=== PATIENT | female | born 1990 | race Caucasian/White ===

== ENCOUNTER 2017-10-06 17:05 | Emergency (ER) | payer OTHER, SELFPAY ==
[~2017-10-06 17:05] MED LIST: ISOVUE-370 76%-LOCM 1 ML ONE
[2017-10-06] MEDS ORDERED: Fentanyl 100 MCG/2 ML VIAL ONE (18:06)
[2017-10-06] MEDS ORDERED: Ondansetron HCl/PF 4 MG/2 ML Vial ONE (18:06)
[2017-10-06] MEDS ORDERED: Morphine 4 MG/ML VIAL ONE (18:47)
[2017-10-06] MEDS ORDERED: Ketorolac Tromethamine 30 MG/ML VIAL ONE (18:47)
--- NOTE | 2017-10-06 20:12 | CT ---
CT OF CHEST WITH CONTRAST CT OF ABDOMEN AND PELVIS WITH CONTRAST CT THORACIC SPINE WITH CONTRAST CT LUMBAR SPINE WITH CONTRAST 10/06/17 INDICATION: Level II trauma, posttraumatic pain. FINDINGS: There is no evidence of consolidation, effusion, or pneumothorax. The imaged thoracoabdominal aorta r eveals no evidence of posttraumatic aneurysmal dilatation or periaortic hematoma. The bowel is not re liably assessed without enteric contrast media. No definite acute posttraumatic sequela of the imaged solid abdominal viscera. There is heterogeneity and prominence of the uterus which is likely due to physiologic changes given patient's age, and the indwelling tampon. Moderate distention of the urinar y bladder. Minimal free pelvic fluid is likely physiologic although clinical correlation as necessary . There is no acute compression fracture or subluxation of the imaged thoracolumbar spine. There is a slight levocurvature of the thoracolumbar spine which could be positional. Correlate clinically. IMPRESSION: No definite acute posttraumatic sequela, with additional details discussed above. Level II trauma results called to patient's ER physician, Jarad Ibrahim, at time of interpretation , 1746 hours, 10/06/17.
== END 2017-10-06 19:03 | disposition home or self-care (01) ==
LOC: ERS 17:05
DX: S29.9XXA Unspecified injury of thorax, initial encounter (principal); S39.91XA Unspecified injury of abdomen, initial encounter; V80.010A Animal-rider injured by fall from or being thrown from horse in noncollision accident, initial encounter
CPT/HCPCS: 71260; 74177; 96374; 96375; J1885; J2270; J2405; J3010

== ENCOUNTER 2017-10-08 20:43 | Emergency (ER) | payer OTHER, SELFPAY ==
[2017-10-08 21:45] LABS: Bilirubin Negative (Negative); Blood, Urine Moderate (Negative); Glucose, Urine (Dipstick) Negative (Negative); Ketone, Urine Negative (Negative); Nitrite Negative (Negative); Protein, Urine (Dipstick) Negative (Neg-Trace); Urobilinogen 0.2 mg/dL (0.2-1.0)
[2017-10-08 21:46] LABS: Bacteria/HPF None Seen HPF (None Seen); Hyaline Casts/LPF 0-3 HYALINE CAST LPF (0-3 Hyaline); Squamous Epithelial 0-3 HPF (0-3); WBC/HPF 0-3 HPF (0-3)
[2017-10-08 21:53] LABS: #Basophils 0.1 thou/uL (0.0-0.2); #Eosinphils 0.4 thou/uL (0.0-0.7); #Lymphocytes 3.2 thou/uL (1.20-3.40); #Neutrophils 4.9 thou/uL (1.40-6.50); %Basophils 0.6 % (0.0-1.0); %Eosinophils 4.6 % (0.0-10.0); %Lymphocytes 33.2 % (21.0-51.0); Hematocrit 39.4 % (36.0-47.0); Mean Platelet Volume 6.1 fL (7.4-10.4); Red Blood Cell (RBC) Count 3.94 mill/uL (4.20-5.40); White Blood Cell (WBC) Count 9.5 thou/uL (4.8-10.8)
[2017-10-08 22:11] LABS: Anion Gap 10 mmol/L (10-20); BUN (Urea Nitrogen) 14 mg/dL (7.0-18.7); Calc. Creatinine Clearance 0 mL/min (70-130); Calcium 9.3 mg/dL (7.8-10.44); Carbon Dioxide 26 mmol/L (22-29); Chloride 107 mmol/L (98-107); Estimated GFR-MDRD 83
--- NOTE | 2017-10-08 23:08 | RAD ---
ONE VIEW CHEST TWO VIEWS ABDOMEN 10/08/17 HISTORY: Abdominal pain and distention. Chest contusion. Bucked off a horse on Thursday. COMPARISON: None. FINDINGS: ONE VIEW CHEST: Normal cardiac silhouette. Pulmonary vessels and hilum are normal. Costophrenic angles are clear. No mass. No consolidation. No pneumothorax or osseous abnormality. ABDOMEN TWO VIEWS: Nonspecific bowel gas pattern. No suspicious densities in the abdomen or pelvis. No pneumoperitoneum. IMPRESSION: 1. No acute cardiopulmonary process. 2. Nonspecific bowel gas pattern. POS: [facility]
== END 2017-10-08 23:34 | disposition home or self-care (01) ==
LOC: ERS 20:43
DX: N76.0 Acute vaginitis (principal); B96.89 Other specified bacterial agents as the cause of diseases classified elsewhere; R10.2 Pelvic and perineal pain
CPT/HCPCS: 74022; 80048; 81003; 81015; 81025; 85025; 87480; 87491; 87510; 87591; 87660